=== PATIENT | male | born 1995 | race Caucasian/White ===

== ENCOUNTER 2019-11-02 23:09 | Observation (INO) ==
[2019-11-02] MEDS ORDERED: Tdap (Boostrix) Vaccine 0.5 ML SYRINGE IM ONE (23:20)
[2019-11-02] MEDS ORDERED: Lidocaine 1% 20 ML MDV INFILT ONE (23:28)
[2019-11-03 00:20] LABS: Alanine Aminotransferase 18 Units/L (7-52); Albumin 4.8 g/dL (3.5-5.7); Alkaline Phosphatase 56 Units/L (34-104); Aspartate Amino Transferase 16 Units/L (13-39); BUN/Creatinine Ratio 9 (6-26); Bilirubin,Total 0.5 mg/dL (0.3-1.0); Blood Urea Nitrogen 8 mg/dL (6-20); Calcium 8.9 mg/dL (8.6-10.3); Carbon Dioxide 20 mEq/L (23-29); Chloride 107 mEq/L (98-107); Globulin 2.4 g/dL (2.4-3.5); Glucose 85 mg/dL (70-105); Osmolality,Calculated 288 (280-300); Potassium 3.7 mEq/L (3.5-5.1); Sodium 140 mEq/L (136-145); Total Protein 7.2 g/dL (6.4-8.9); eGFR For African Americans > 60 (> 60); eGFR For Non-African Americans > 60 (> 60)
[2019-11-03 00:26] LABS: Basophils % 0.2 %; Eosinophils % 0.4 %; Hematocrit 48.7 % (37.5-50.1); Hemoglobin 17.5 g/dL (12.9-16.9); Immature Granulocytes % 0.5 % (0-4); Lymphocytes # 2.7 K/mcL (0.6-4.6); Lymphocytes % 25.8 %; Mean Corpuscular HGB Conc 35.9 g/dL (31.6-35.5); Mean Corpuscular Hemoglobin 32.1 pg (28.0-33.3); Mean Corpuscular Volume 89.4 fL (83.0-100.0); Mean Platelet Volume 9.5 fL (9.4-12.4); Monocytes # 0.6 K/mcL (0.0-1.3); Monocytes % 6.1 %; Neutrophils # 6.9 K/mcL (1.6-8.9); Platelet Count 235 K/mcL (140-400); Red Blood Count 5.45 M/mcL (4.19-5.50); Red Cell Distribution Width 12.1 % (11.5-14.5); White Blood Count 10.3 K/mcL (4.3-11.1)
[2019-11-03] MEDS ORDERED: ceFAZolin 1,000 MG in Water for inj. (sterile) 10 ML IVP ONE (00:55)
[2019-11-03] MEDS ORDERED: *HR* HYDROmorphone (PF) 1 MG/ML SYRINGE IVP STA (01:18)
[2019-11-03] MEDS ORDERED: Naloxone 0.4 MG/ML INJ IVP PRN ×2 (05:27→16:13)
[2019-11-03] MEDS ORDERED: 0.9 % Sodium Chloride 1,000 ML IVC SCH ×2 (05:30→16:13)
[2019-11-03 06:29] LABS: Hematocrit 46.5 % (37.5-50.1); Hemoglobin 16.3 g/dL (12.9-16.9); Mean Corpuscular HGB Conc 35.1 g/dL (31.6-35.5); Mean Corpuscular Volume 91.4 fL (83.0-100.0); Mean Platelet Volume 9.4 fL (9.4-12.4); Platelet Count 216 K/mcL (140-400); Red Blood Count 5.09 M/mcL (4.19-5.50); Red Cell Distribution Width 12.2 % (11.5-14.5); White Blood Count 12.1 K/mcL (4.3-11.1)
[2019-11-03 06:32] LABS: Prothrombin Time 11.9 Seconds (9.4-12.1)
[2019-11-03 06:47] LABS: BUN/Creatinine Ratio 10 (6-26); Blood Urea Nitrogen 9 mg/dL (6-20); Calcium 8.7 mg/dL (8.6-10.3); Carbon Dioxide 22 mEq/L (23-29); Chloride 107 mEq/L (98-107); Ethanol 73 mg/dL (Less than 10); Glucose 91 mg/dL (70-105); Osmolality,Calculated 288 (280-300); Potassium 3.9 mEq/L (3.5-5.1); Sodium 140 mEq/L (136-145); eGFR For African Americans > 60 (> 60); eGFR For Non-African Americans > 60 (> 60)
[2019-11-03] MEDS ORDERED: Nicotine 21 MG PATCH.TD24 TD SCH (09:00)
[2019-11-03] MEDS ORDERED: *HR* OxyCODONE/APAP 5/325 TABLET PO ONE (10:06)
[2019-11-03] MEDS ORDERED: *HR* OxyCODONE Immed Rel 5 MG TABLET PO PRN (11:16)
[2019-11-03] MEDS: Ketorolac 15 MG/ML VIAL IVP SCH ×4 (12:11→23:11)
[2019-11-03] MEDS ORDERED: *HR* FentaNYL (PF) 100 MCG/2 ML VIAL ONE ×2 (12:53→14:12)
[2019-11-03] MEDS ORDERED: Lidocaine -MPF 2% 2 ML VIAL ONE (12:54)
[2019-11-03] MEDS ORDERED: *HR* Propofol 200 MG/20 ML VIAL IVP ONE (12:54)
[2019-11-03] MEDS ORDERED: Dexamethasone 4 MG/ML VIAL ONE (12:54)
[2019-11-03] MEDS ORDERED: Ondansetron 4 MG/2 ML VIAL ONE (12:54)
[2019-11-03] MEDS ORDERED: *HR* Midazolam HCl 2 MG/2 ML VIAL ONE (12:55)
[2019-11-03] MEDS ORDERED: Bupivacaine/EPI 1:200k 0.5%PF 10 ML VIAL ONE (13:31)
[2019-11-03] MEDS ORDERED: ceFAZolin 2,000 MG in Water for inj. (sterile) 20 ML IVP ONE (13:40)
[2019-11-03] MEDS ORDERED: Pregabalin 75 MG CAPSULE ONE (13:54)
[2019-11-03] MEDS ORDERED: Famotidine 20 MG/2 ML VIAL ONE (13:55)
[2019-11-03] MEDS ORDERED: EPHEDrine 50 MG/ML VIAL ONE (14:22)
[2019-11-03] MEDS ORDERED: ceFAZolin 2,000 MG in 0.9 % Sodium Chloride 100 ML IVPB SCH (16:13)
[2019-11-03] MEDS: Nicotine 21 MG PATCH.TD24 TD SCH (17:43)
[2019-11-03] MEDS: *HR* OxyCODONE Immed Rel 5 MG TABLET PO PRN (17:43)
[2019-11-03] MEDS: ceFAZolin 2,000 MG in 0.9 % Sodium Chloride 100 ML IVPB SCH (23:11)
[2019-11-04] MEDS: Ketorolac 15 MG/ML VIAL IVP SCH ×4 (05:49→23:35)
[2019-11-04] MEDS: ceFAZolin 2,000 MG in 0.9 % Sodium Chloride 100 ML IVPB SCH (05:49)
[2019-11-04] MEDS: Nicotine 21 MG PATCH.TD24 TD SCH (11:21)
[2019-11-04] MEDS: *HR* OxyCODONE Immed Rel 5 MG TABLET PO PRN ×2 (13:52→19:53)
[2019-11-05] MEDS: Ketorolac 15 MG/ML VIAL IVP SCH ×4 (05:28→23:26)
[2019-11-05] MEDS ORDERED: Lidocaine/EPI 1:100k 1% 20 ML VIAL ONE (08:19)
[2019-11-05] MEDS ORDERED: Oxymetazoline Nasal SPRAY BOTTLE NS ONE (08:20)
[2019-11-05] MEDS ORDERED: *HR* EPINEPHrine 30 MG/30 ML MDV ONE (08:20)
[2019-11-05] MEDS ORDERED: Dexamethasone 4 MG/ML VIAL ONE (08:53)
[2019-11-05] MEDS ORDERED: Lidocaine -MPF 4% 5 ML AMPUL ONE (08:53)
[2019-11-05] MEDS ORDERED: *HR* FentaNYL (PF) 100 MCG/2 ML VIAL ONE (08:53)
[2019-11-05] MEDS ORDERED: Ondansetron 4 MG/2 ML VIAL ONE (08:53)
[2019-11-05] MEDS ORDERED: *HR* Rocuronium Bromide 50 MG/5 ML VIAL ONE (08:53)
[2019-11-05] MEDS ORDERED: *HR* Succinylcholine 200 MG/10 ML VIAL IVP ONE (08:53)
[2019-11-05] MEDS ORDERED: *HR* Propofol 200 MG/20 ML VIAL IVP ONE (08:54)
[2019-11-05] MEDS ORDERED: Lacri-Lube 3.5 GM TUBE ONE (08:58)
[2019-11-05] MEDS ORDERED: Acetaminophen IV 1,000 MG/100 ML INFUS..BTL ONE (09:18)
[2019-11-05] MEDS ORDERED: *HR* Promethazine 25 MG/ML VIAL IVP PRN (09:31)
[2019-11-05] MEDS ORDERED: *HR* OxyCODONE Immed Rel 5 MG TABLET PO PRN (09:31)
[2019-11-05] MEDS ORDERED: Ondansetron 4 MG/2 ML VIAL IVP ONE (09:31)
[2019-11-05] MEDS: *HR* OxyCODONE Immed Rel 5 MG TABLET PO PRN ×2 (10:45→21:20)
[2019-11-05] MEDS: Nicotine 21 MG PATCH.TD24 TD SCH (15:22)
[2019-11-06] MEDS: Ketorolac 15 MG/ML VIAL IVP SCH (05:23)
[2019-11-06] MEDS: *HR* OxyCODONE Immed Rel 5 MG TABLET PO PRN (09:54)
[2019-11-06 10:32] VITALS: BP 115/75
== END 2019-11-06 12:00 | disposition home or self-care (01) ==
LOC: 2NENU 23:09 → EMEROOARM 23:09 → SUATTDRO 11-03 02:24 → 3NENU 11-03 02:34
PROVIDERS: ADMIT Internal Medicine; ATTEND Internal Medicine